=== PATIENT | female | born 1995 | race Caucasian/White ===

== ENCOUNTER 2025-04-19 11:45 | Outpatient (CLI) | payer BC | END 2025-04-19 11:46 | disposition home or self-care (01) | LOC: CSHLAB 11:45 | PROVIDERS: ATTEND Student in an Organized Health Care Education/Training Program | DX: Z01.810 Encounter for preprocedural cardiovascular examination (principal); T83.32XA Displacement of intrauterine contraceptive device, initial encounter | CPT/HCPCS: 84703; 85027; 86850; 86900; 86901; 93005; 93010 ==

== ENCOUNTER 2025-04-21 11:28 | Day surgery (SDC) | payer BC ==
[2025-04-19 12:06] VITALS: BMI 40.2
[2025-04-19 12:24] LABS: Hematocrit 40.0 % (34.9-44.5); Hemoglobin 13.3 g/dL (12.0-15.5); Mean Corpuscular Hemoglobin 27.0 pg (27.0-33.0); Mean Corpuscular Volume 81.1 fL (81.6-98.3); Platelet Count 350 10x3/uL (150-450); Red Blood Cell (RBC) Count 4.93 10x6/uL (3.90-5.03); White Blood Cell (WBC) Count 8.41 10x3/uL (3.5-10.5)
[2025-04-19 12:44] LABS: BHCG - Serum Negative (NEGATIVE); Pregs Control Background? CLEAR/WHITE (CLR/WHITE); Pregs Control Bar Appear? YES (CONTROL BAR)
[2025-04-21] MEDS ORDERED: SUCCINYLCHOLINE/SOD CL,ISO/PF 200 MG/10 ML SYRINGE FS ONE (12:36)
[2025-04-21] MEDS ORDERED: PROPOFOL 40 ML ONE (12:36)
[2025-04-21] MEDS ORDERED: Ondansetron PF 4 MG/2 ML Vial ONE (12:36)
[2025-04-21] MEDS ORDERED: Ketorolac Tromethamine 30 MG (1 mL) VIAL ONE (12:36)
[2025-04-21] MEDS ORDERED: Silver Nitrate Application 1 EACH ONE (13:04)
[2025-04-21] MEDS ORDERED: Albuterol HFA (OR) 200 PUFF INH ONE (14:01)
== END 2025-04-21 16:10 | disposition home or self-care (01) ==
LOC: CSHSDC 11:28
PROVIDERS: ATTEND Student in an Organized Health Care Education/Training Program
PROC: 0UPD8HZ Removal of Contraceptive Device from Uterus and Cervix, Via Natural or Artificial Opening Endoscopic (ICD-10-PCS; principal; 2025-04-21)
DX: T83.39XA Other mechanical complication of intrauterine contraceptive device, initial encounter (principal); Z91.040 Latex allergy status; F41.9 Anxiety disorder, unspecified; F32.A Depression, unspecified; J45.909 Unspecified asthma, uncomplicated; Z79.899 Other long term (current) drug therapy
CPT/HCPCS: 84703; 85027; 86850; 86900; 86901; J1885; J2250; J2405; J2704; J3010